=== PATIENT | male | born 1965 | race Caucasian/White ===

== ENCOUNTER 2017-12-11 05:52 | Day surgery (SDC) | payer BC, SELFPAY ==
--- NOTE | 2017-12-07 10:50 | EKG12_ITS ---
Test Reason : PRE-OP Blood Pressure : / mmHG Vent. Rate : 058 BPM Atrial Rate : 058 BPM P-R Int : 148 ms QRS Dur : 096 ms QT Int : 396 ms P-R-T Axes : 003 010 006 degrees QTc Int : 388 ms Sinus bradycardia Otherwise normal ECG Confirmed by NIRALI SAMPSON, KYLE ([id number]), editor department EUGENIA NIETO ([id number]) on 12/08/2017 11:52:24 AM Referred By: SHMUEL Confirmed By:KYLE CAMPOVERDE MD
[2017-12-07 11:21] LABS: Hematocrit 45.4 % (40-54); Hemoglobin 15.1 g/dl (13.0-16.5); Mean Corp Hgb Conc 33.3 g/gl (32-36); Mean Corpuscular Hgb 30.2 pg (27.0-32.0); Mean Corpuscular Volume 90.8 fL (80-94); Mean Platelet Vol. 10.2 fl (6.2-12.0); Platelet Count 173 K/mm3 (150-450); RBC Distribution Width CV 13.1 % (11.6-14.6); White Blood Count 5.9 K/mm3 (4.4-11.0)
[2017-12-07 11:26] LABS: Scan Indicated on CBC? Y/N NO
[2017-12-11] VITALS (8 sets, daily range): BP systolic 104–126; BP diastolic 56–78; PULSE 59–74; RESP 12–18; TEMP 36.6–36.8; O2SAT 92–97; BMI 33.3
[2017-12-11] MEDS: Cefazolin 2 GM in 0.9% Normal Saline 100 ML IV (07:23)
[2017-12-11] MEDS: Bupivacaine Mpf 0.5% 30 ML VIAL (07:52)
--- NOTE | 2017-12-11 08:09 | OP.PCM_ITS ---
Problem List (1) Umbilical hernia Status: Acute Report of Operation Date of Procedure: 12/11/17 Pre-Operative Diagnosis: umbilical hernia Post-Operative Diagnosis: umbilcial hernia - 1cm Surgery/Procedure Performed:: simple umbilical hernia repair Description of Surgical Findings:: as above client support administrator: None Type of Anesthesia:: General Anesthesiologist: Max Jose - ASA2 Specimen's removed: None Drains: None Estimated Blood Loss (mL): 10 Fluids Replaced: 800 Description of Procedure: The patient was brought to the operating suite. Sign in was performed verifying patient, site, procedure, position, and DVT prophylaxis with SCDs. Patient received 2 g Ancef antibiotic prophylaxis. Following induction of general anesthetic, the patient?s abdomen was prepped and draped in the usual fashion. Timeout was performed verifying patient, site , position. Local anesthetic was injected . A curvilinear incision was made and dissection carried down to the umbilical root fascia. Dissection was continued around the umbilical root and the umbilical skin was dissected off the hernia sac. An extraperitoneal space was created. The fascia was noted to be weak and therefore mesh was planned to be placed. The hernia sac was opened to clean fascial margin yielding a defect approximately 1cm. A 3 interrupted 0 Prolene sutures were placed in a [id number] fashion to close the fascial defect with the knots buried along the fascial margin. Following this the umbilical root was tacked back down with a 3-0 Vicryl suture. Subcutaneous fat was closed with interrupted 3-0 Vicryl suture. Skin was closed with a running 4-0 Monocryl subcuticular sutures. Steri-Strips and bandages were applied. The patient was brought to recovery room in stable condition. - Admit VTE Documentation VTE Present on Admission: No VTE Mechan Device Prophylaxis: SCD's VTE Pharm Prophylaxis ordered?: No
[2017-12-11] MEDS: oxyCODONE 5 MG Tablet PO ×2 (09:59→10:50)
== END 2017-12-11 11:32 | disposition home or self-care (01) ==
LOC: SDC 05:52 → AC 05:54
PROVIDERS: Family Provider Family Medicine; PCP Family Medicine; Visit Provider Surgery
PROC: (CPT 49585; principal; 2017-12-11 07:00)
DX: K42.9 Umbilical hernia without obstruction or gangrene (principal); J45.909 Unspecified asthma, uncomplicated; G47.33 Obstructive sleep apnea (adult) (pediatric); Z79.51 Long term (current) use of inhaled steroids; Z79.899 Other long term (current) drug therapy
CPT/HCPCS: 49585; 36415; 85027; 93005; J7120; J2405

== ENCOUNTER 2022-12-07 16:57 | Emergency (ER) | payer OTHER, SELFPAY ==
[2022-12-07 16:58] VITALS: BP 158/107; PULSE 87; RESP 18; TEMP 36.2; O2SAT 97; BMI 35.2
--- NOTE | 2022-12-07 18:28 | RAD_ITS ---
STUDY: X-RAY - LUMBAR SPINE REASON FOR EXAM: Male, 57 years old. Injury/Pain TECHNIQUE: 3 view(s) of the lumbar spine were obtained. COMPARISON: None FINDINGS: Normal lumbar lordosis. There is no substantial scoliosis. There is a normal alignment of the vertebrae. No evidence for acute fracture or subluxation. No lytic or sclerotic bony lesions are seen There is narrowing of the L4-5 disc space and endplate spurring. . The soft tissue structures are unremarkable. RAD/Lumbar Spine 2 or 3 Views IMPRESSION: Mild spondylosis. No acute fracture or other significant bony pathology Electronically Signed: Juan Manuel Serrano MD at 19:07 EST ,
[2022-12-07 18:30] VITALS: RESP 18
[2022-12-07 18:35] VITALS: O2SAT 97
--- NOTE | 2022-12-07 18:43 | RAD_ITS ---
STUDY: X-RAY - CERVICAL SPINE REASON FOR EXAM: Male, 57 years old. Injury/Pain TECHNIQUE: 4 view(s) of the cervical spine were obtained. COMPARISON: None FINDINGS: Normal anterior atlantoaxial articulation. Normal odontoid process. Decreased cervical lordosis possibly due to muscle spasm or positioning artifact.. No evidence for acute fracture or subluxation.. There is anterior endplate spurring at C4-5, C5-6 and C6-7 in association with narrowing of the disc space at C6-7 The soft tissue structures are unremarkable. RAD/Cerv Spine 2 or 3 Views IMPRESSION: Mild spondylosis. No acute fracture or other significant bony pathology. Electronically Signed: Juan Manuel Serrano MD at 19:02 EST ,
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
== END 2022-12-07 20:19 | disposition home or self-care (01) ==
PROVIDERS: Emergency Provider Emergency Medicine; PCP Family Medicine; Visit Provider Emergency Medicine
DX: S39.012A Strain of muscle, fascia and tendon of lower back, initial encounter (principal); S16.1XXA Strain of muscle, fascia and tendon at neck level, initial encounter; E66.9 Obesity, unspecified; V89.2XXA Person injured in unspecified motor-vehicle accident, traffic, initial encounter
CPT/HCPCS: 72040; 72100; 99282